=== PATIENT | female | born 1955 | race Caucasian/White ===

== ENCOUNTER 2022-09-12 13:24 | Outpatient (CLI) | payer MEDICARE, BC, SELFPAY ==
--- OUTSIDE RECORDS SUMMARY | 2022-09-12 09:07 | XMS_ITS | Encounter Summary ---
:1955 Author Organization [facility] Address [address] [place] [address] Care Team Providers Name Role Phone Unavailable Primary Care Provider Unavailable Reason for Visit Outpatient (Routine) - Closed Specialty Diagnoses / Procedures Referred By Contact Refer red To Contact Dermatology Diagnoses Rhytid Ryne Noguera M.D. [facility] Procedures XIAO Chemical peel Referral ID Status Reason Start Date Expiration Date Visits Requ ested Visits Authorized [id number] Closed 12/18/2020 12/18/2021 1 1 Encounter Details Date Type Department Care Team Description 01/07/2021 Office Visit Department of Dermatology Ryne Noguera M .D. [place] in [facility] Valerie Benitez, BibiNBeulah [address] [place] [address] Social History Tobacco Use Types Packs/Day Years Used Date Smoking Tobacco: Never Assessed Alcohol Habits Answer Date Recorded How often do you have a drink containing alcohol? 2-4 times a month 12/12/2020 How many drinks containing alcohol do you have on a 1 or 2 12/12/2020 typical day when you are drinking? How often do you have six or more drinks on one Never 12/12/2020 occasion? Social Isolation Answer Date Recorded In a typical week, how many times do you More than three gopal es a week 12/12/2020 talk on the phone with family, friends, or neighbors? How often do you get together with friends Never 12/12/2020 or relatives? How often do you attend roman catholic or Never 2020 congregation services? Do you belong to any clubs or Yes 12/12/2020 organizations such as roman catholic groups, unions, fraternal or athletic groups, or school groups? How often do you attend meetings of the More than 4 times pe r year 12/12/2020 clubs or organizations you belong to? Are you now , , , 12/12/2020 , never or living with a partner? Physical Activity Answer Date Recorded On average, how many days per week do you engage in moderate to 6 days 12/12/2020 strenuous exercise (like walking fast, running, jogging, dancing, swimming, biking, or other activities that cause a light or heavy sweat)? On average, how many minutes do you engage in exercise at th is 30 min 12/12/2020 level? Stress Answer Date Recorded Do you feel stress - tense, restless, nervous, or anxious, N ot at all 12/12/2020 or unable to sleep at night because your mind is troubled all the time - these days? Financial Resource Strain Answer Date Recorded How hard is it for you to pay for the very basics like Not h john paul at all 12/12/2020 food, housing, medical care, and heating? Food Insecurity Answer Date Recorded Within the past 12 months, you worried that your food would Never true 12/12/2020 run out before you got money to buy more. Within the past 12 months, the food you bought just didn't N ever true 12/12/2020 last and you didn't have money to get more. Transportation Needs Answer Date Recorded In the past 12 months, has lack of transportation kept you f rom No 12/12/2020 medical appointments or from getting medications? In the past 12 months, has lack of transportation kept you f rom No 12/12/2020 meetings, work, or getting things needed for daily living? Education Answer Date Recorded What is the highest level of school Master's degree (e.g., M A, MS, 12/12/2020 you have completed or the highest Rosalva, MEd, ENTERPRISE RESOURCE ANALYST, SRINI) degree you have received? Sex Assigned at Date Recorded Not on file documented as of this encounter Progress Notes Valerie Cai R.N. - 01/07/2021 9:40 AM CST PREOP INDICATION: TREATMENT Date of Procedure: 01/07/2021 Nurse: Valerie Cai R.N. Ordering Provider: Dr. Layton Noguera ([id number]) PostOp Diagnosis: rhytides Anatomic Location: Hands and fore Procedure: Glytone Glytone Hand peel INFORMED CONSENT Discussed the risks, benefits, alternatives, and the necessity of other members of the healthcare team participating in the procedure. All questions answered and consent given. Procedural pause conducted to verify: correct patient identity, procedure to be performed and as applicable, correct side and site, correct patient position, and availability of implants, special equipment or special requirements. Exclusion Criteria: Presence of herpes simplex lesions in the area to be treated: NO Recent (less than 6 months) facial surgery: NO Recent (less than 6 months) laser treatments, dermabrasion, or any other treatment that may alter orcompromise the cutaneous structure: NO Immunosuppressive diseases: NO Previous radiotherapy of the portion of skin to be treated:NO Personal or family history of developing keloids and/or hypertrophic scars: NO Personal or family history of inflammatory hyperpigmentation:NO or : NO Allergy to peel ingredient: NO Oral retinoids or Accutane in the last 6 months: NO Topical retinols or vitamin C in the past 7 days: NO Recent or planned excessive sun exposure: NO This is peel 2 of a planned 3 peel series. The skin was prepped in the usual fashion with a PS Wipe preoperatively. Soothing Lipid Recovery Cream was applied to the lips, eyes (inner and outer canthi),nasal creases, and any other area where the peel was not desired. A brush applicator was placed ontothe Glytone Hand peel vial top. A total of 3 layers in 6 minutes applied to treatment areas. When desired application time/endpoint reached, Glytone Hand peel Removal ROMULO Wipe used to remove/neutralizethe peel. Soothing Lipid Recovery Cream applied to treatment areas. Next Glytone peel in 20 days. Estimated blood loss: None. Complications: None. Wound care: Routine. Postoperative medications: Glytone lipid recovery cream Next peel will be scheduled in 02/05/2021 PATIENT EDUCATION Ready to learn, no apparent learning barriers were identified; learning preferences include listening. Explained post peel instructions; patient expressed understanding of the content. Patient paid for the procedure today. There should be no additional charges. SPORTATION ASSISTANT documented in this encounter Plan of Treatment Not on filedocumented as of this encounter Visit Diagnoses Diagnosis Rhytid documented in this encounter
--- OUTSIDE RECORDS SUMMARY | 2022-09-12 09:07 | XMS_ITS | Encounter Summary ---
:1955 Author Organization [facility] Address [address] [place] [address] Care Team Providers Name Role Phone Unavailable Primary Care Provider Unavailable Encounter Details Date Type Department Care Team Description 01/07/2021 Ancillary Procedure Department of Dermatology Social History Tobacco Use Types Packs/Day Years [...] or relatives? How often do you attend anabaptism or Never 2020 mandaeism services? Do you belong to any clubs or Yes 12/12/2020 organizations such as anabaptism groups, unions, fraternal or athletic groups, or [...] minutes do you engage in exercise at is 30 min 12/12/2020 level? Stress Answer [...] have completed or the highest Rosalva, MEd, ROUGE PRESSER, SRINI) degree you have received? Sex Assigned at Date Recorded Not on file documented as of this encounter Plan of Treatment Not on filedocumented as of this encounter Procedures Procedure Name Priority Date/Time Associated Comments Diagnosis DERMATOLOGY IMAGE Routine 01/07/2021 12:05 Result s for this EXAM AM REFERRAL COORDINATOR procedure are i n the results section. documented in this encounter Results Hands 524-Dermatology Image Exam (01/07/2021 12:05 AM REFERRAL COORDINATOR) Specimen (Source) Anatomical Location Collection Method / Collectio n Time Received Time / Laterality Volume Narrative IIMS - 01/07/2021 1:21 PM REFERRAL COORDINATOR This order has been created and auto-finalized to support the import of images acquired without order. The clini sharron documentation to support these images can be found on the encounter paul t produced images. Provider Not In System IMG NON RAD IMAGING PROCEDUR ES Performing Organization Address City/State/ZIP Code Phon e Number IIMI IIMI NA documented in this encounter Visit Diagnoses Not on filedocumented in this encounter
--- OUTSIDE RECORDS SUMMARY | 2022-09-12 09:07 | XMS_ITS | Encounter Summary ---
:1955 Author Organization [facility] Address [address] [place] [address] Care Team Providers Name Role Phone Unavailable Primary Care Provider Unavailable Encounter Details Date Type Department Care Team Description 12/18/2020 Ancillary Procedure Department of Dermatology Social History [...] or relatives? How often do you attend gnosticist or Never 2020 protestant services? Do you belong to any clubs or Yes 12/12/2020 organizations such as gnosticist groups, unions, fraternal or athletic groups, or [...] have completed or the highest Rosalva, MEd, POT ANNEALER, SRINI) degree you have received? Sex Assigned at Date Recorded Not on file documented as of this encounter Plan of Treatment Not on filedocumented as of this encounter Procedures Procedure Name Priority Date/Time Associated Comments Diagnosis DERMATOLOGY IMAGE Routine 12/18/2020 12:00 Result s for this EXAM AM DIRECTOR OF MANUFACTURING OPERATIONS procedure are i n the results section. documented in this encounter Results Hands 524-Dermatology Image Exam (12/18/2020 12:00 AM DIRECTOR OF MANUFACTURING OPERATIONS) Specimen (Source) Anatomical Location Collection Method / Collectio n Time Received Time / Laterality Volume Narrative IIMS - 12/18/2020 3:18 PM DIRECTOR OF MANUFACTURING OPERATIONS This order has been created and auto-finalized to support the import of images acquired without order. The clini sharron documentation to support these images can be found on the encounter paul t produced images. Provider Not In System IMG NON RAD IMAGING PROCEDUR ES Performing Organization Address City/State/ZIP Code Phon e Number [id number] NA documented in this encounter Visit Diagnoses Not on filedocumented in this encounter
--- OUTSIDE RECORDS SUMMARY | 2022-09-12 09:07 | XMS_ITS | Encounter Summary ---
:1955 Author Organization [facility] Address [address] [place] [address] Care Team Providers Name Role Phone Unavailable Primary Care Provider Unavailable Encounter Details Date Type Department Care Team Description 12/18/2020 Clinical Communication Department of Roberto, Dermatology in Sapna Guadarrama R.N. [place], [place] [phone] [address] [facility] (Work) [place] [address] Social History Tobacco Use Types Packs/Day Years [...] or relatives? How often do you attend bahai or Never 2020 alevism services? Do you belong to any clubs or Yes 12/12/2020 organizations such as bahai groups, unions, fraternal or athletic groups, or [...] have completed or the highest Rosalva, MEd, VP CARDIOVASCULAR SERVICE LINE, SRINI) degree you have received? Sex Assigned at Date Recorded Not on file documented as of this encounter Miscellaneous Notes Telephone Encounter - Sapna Mejia, RBeulahN. - 12/18/2020 10:16 AM COMPUTER EQUIPMENT REPAIRER S-Aruna Velazquez would like a new cosmetic consult appointment with Dr. Morton since it has been so long. She would like to discuss/review the options again with Dr. Morton and then plan for the recommended procedure(s). Baljeet-Aruna saw Dr. Morton for a cosmetic consult 07/17/[address] Morton recommended and ordered a CO2 laser procedure. Patient was never able to get it scheduled due to calendar difficulty and then COVID. She states she has undergone multiple laser treatments in the past, the last of which was approximately 7 years ago. She has also received ???dry ice types of therapy and has used a Retin-A product inthe past. She has never undergone a chemical peel. She is currently using SkinCeutical products including a moisturizer and sunscreen. Aruna did receive her first chemical peel, the glytone hand peel, on 12/18/20. A-Aruna mentioned that she would like a new consult rather than going forward with the CO2 procedure just yet. I agreed that was a good idea and placed the order for a new cosmetic consult so scheduling can work on getting her an appointment. R-Aruna needs cosmetic consult scheduled. Order placed. UTER EQUIPMENT REPAIRER documented in this encounter Plan of Treatment Not on filedocumented as of this encounter Visit Diagnoses Not on filedocumented in this encounter
--- OUTSIDE RECORDS SUMMARY | 2022-09-12 09:07 | XMS_ITS | Encounter Summary ---
:1955 Author Organization [facility] Address [address] [place] [address] Care Team Providers Name Role Phone Unavailable Primary Care Provider Unavailable Reason for Referral Outpatient (Routine) - Closed Specialty Diagnoses / Procedures Referred By Contact Refer red To Contact Dermatology Diagnoses Rhytid Ryne Noguera M.D. [facility] Procedures XIAO Chemical peel Referral ID Status Reason Start Date Expiration Date Visits Requ ested Visits Authorized [id number] Closed 12/18/2020 12/18/2021 1 1 ER VAULT Reason for Visit Outpatient (Routine) - Closed Specialty Diagnoses / Procedures Referred By Contact Refer red To Contact Dermatology Diagnoses [place] Laury Huitron M.D. [facility] Procedures XIAO Chemical peel [address] [place], [place] [address] Referral ID Status Reason Start Date Expiration Date Visits Requ ested Visits Authorized [id number] Closed 12/16/2020 12/16/2021 1 1 Encounter Details Date Type Department Care Team Description 12/18/2020 Office Visit Department of Mesha Huitron M.D. [address] [place] [phone] Rhytid (Primary Dx); Dermatology in Sapna Mejia R.N. [place], [place] [address] [place] [phone] Social History Tobacco Use Types Packs/Day Years [...] or relatives? How often do you attend latter-day or Never 2020 hinduism services? Do you belong to any clubs or Yes 12/12/2020 organizations such as latter-day groups, unions, fraternal or athletic groups, or [...] have completed or the highest Rosalva, MEd, CARE TRAINER, SRINI) degree you have received? Sex Assigned at Date Recorded Not on file documented as of this encounter Progress Notes Sapna Mejia R.N. - 12/18/2020 9:40 AM CST PREOP INDICATION: TREATMENT Date of Procedure: 12/18/2020 Nurse: Sapna Mejia R.N. Ordering Provider: Dr. Layton Noguera ([id number]) PostOp Diagnosis: rhytides Anatomic Location: hands/forearms Procedure: Glytone Glytone Hand peel INFORMED CONSENT [...] excessive sun exposure: NO This is peel 1 of a planned 3 peel series. The [...] application time/endpoint reached, Glytone Hand peel Removal Wipe/ROMULO Wipe used to remove/neutralize the peel. Soothing Lipid Recovery Cream applied to treatment areas. Next Glytone peel in 20 days. Estimated blood loss: None. Complications: None. Wound care: Routine. Postoperative medications: Glytone lipid recovery cream Next peel will be scheduled in January 07 PATIENT EDUCATION Ready to learn, no apparent learning barriers were identified; learning preferences include listening. Explained post peel instructions; patient expressed understanding of the content. Patient paid for the procedure today. There should be no additional charges. ER VAULT documented in this encounter Plan of Treatment Scheduled Orders Name Type Priority Associated Diagnoses Order S chedule XIAO Chemical peel Dermatology Routine Rhytid Expected: 12/18/2020 (Approximate), Expires: 12/18/2023 documented as of this encounter Visit Diagnoses Diagnosis Rhytid - Primary Lentigo documented in this encounter
--- OUTSIDE RECORDS SUMMARY | 2022-09-12 09:07 | XMS_ITS | Clinical Summary ---
:1955 Author Organization [facility] Address [address] [place] [address] Care Team Providers Name Role Phone Unavailable Primary Care Provider Unavailable Source Comments Patient records contain information from all sites at [facility]. For routine questions regarding patient records, call [phone] during business hours, M-F 8:00 AM - 5:00 PM Central Time. Record requests for emergency care only can be directed to [phone] at any time.[facility] Medications Medication Sig Dispensed Refills Start Date End Date Status fluorouraciL (EFUDEX) Apply 1 application 40 g 0 12/16/19 21 Active 5 % cream topically 2 (two) times a day. Social History Tobacco Use Types Packs/Day Years [...] or relatives? How often do you attend jainism or Never 2020 gnosticist services? Do you belong to any clubs or Yes 12/12/2020 organizations such as jainism groups, unions, fraternal or athletic groups, or [...] have completed or the highest Rosalva, MEd, INCIDENT RESPONSE ANALYST, SRINI) degree you have received? Sex Assigned at Date Recorded Not on file Plan of Treatment Health Maintenance Due Date Last Done Comments Bone Density Scan (Osteoporosis 1955 Screen) CT Colonography 1955 Cologuard 1955 Colonoscopy 1955 Colorectal Cancer Screening 1955 FIT 1955 Fasting Glucose for Diabetes 1955 Screening Hepatitis C Screening 1955 Mammogram 1955 Depression Screening (Annual 11/06/2021 PHQ-2) Fall Risk Screen (Annual) 11/06/2021 COVID-19 Vaccine (5 - Booster for 05/23/2022 03/28/2022, , Moderna series) 01/19/2021, Additional history exists Influenza Vaccine (#1) 2022 08/03/2021, 08/17/2020, 09/02/2019, Additional history exists DTaP,Tdap,and Td Vaccines (3 - Td 09/21/2027 09/21/2017, or Tdap) Pneumococcal vaccine (65+ years) Completed 10/17/2019, Zoster Vaccines Completed 08/17/2022, 04/12/2022, 06/27/2013 Insurance Payer Benefit Plan Subscriber ID Effective Phone Address Typ e / Group Dates MEDICARE MEDICARE A [id number] 2018-Pres [address] [place] [address] BLUE CROSS BCBS [place] [id number] 2018-Pres [phone] PO [address]EDRO PABLO X Cost Share BLUE SHIELD BLUE COST ent [phone] [place] [address]
--- OUTSIDE RECORDS SUMMARY | 2022-09-12 09:07 | XMS_ITS | Encounter Summary ---
:1955 Author Organization [facility] Address [address] [place] [address] Care Team Providers Name Role Phone Unavailable [...] or relatives? How often do you attend cheondoism or Never 2020 roman catholic services? Do you belong to any clubs or Yes 12/12/2020 organizations such as cheondoism groups, unions, fraternal or athletic groups, or [...] have completed or the highest Rosalva, MEd, EMERGING TECHNOLOGIES DIRECTOR, SRINI) degree you have received? Sex Assigned at Date Recorded Not on file documented as of this encounter Plan of Treatment Not on filedocumented as of this encounter Procedures Procedure Name Priority Date/Time Associated Comments Diagnosis DERMATOLOGY IMAGE Routine 01/07/2021 12:00 Result s for this EXAM AM METAL MILLING MACHINE OPERATOR procedure are i n the results section. documented in this encounter Results Arms-Dermatology Image Exam (01/07/2021 12:00 AM METAL MILLING MACHINE OPERATOR) Specimen (Source) Anatomical Location Collection Method / Collectio n Time Received Time / Laterality Volume Narrative IIMS - 01/07/2021 1:21 PM METAL MILLING MACHINE OPERATOR This order has been created and auto-finalized to support the import of images acquired without order. The clini sharron documentation to support these images can be found on the encounter paul t produced images. Provider Not In System IMG NON RAD IMAGING PROCEDUR ES Performing Organization Address City/State/ZIP Code Phon e Number IIMS IIMS NA documented in this encounter Visit Diagnoses Not on filedocumented in this encounter
--- OUTSIDE RECORDS SUMMARY | 2022-09-12 09:07 | XMS_ITS | Clinical Summary ---
:1955 Author Organization [facility] [place] [address] Care Team Providers Name Role Phone Hilda Carbajal Primary Care Provider Allergies Active Allergy Reactions Severity Noted Date Comments Sulfa (Sulfonamide Antibiotics) Hives 2 Reaction in 1997 Medications No known medications Active Problems Problem Noted Date Routine general medical examination at [facility] 06/23/2011 Overview: Colonoscopy 06/2013 normal repeat in 10 y ears Immunizations Name Administration Dates Next Due HepA-HepB (Twinrix) 12/26/2006, 07/13/2006, 06/06/2006 Tdap 06/06/2006 Zoster (Zostavax-ZVL, live) 06/27/2013 Family History Medical History Relation Name Comments Cancer Father multiple myeloma Heart Disease Mother MVP Cancer-breast Paternal Grandmother Diagnosed i n her 70's Other Sister MVP?? Relation Name Status Comments Father (Age 59) melanoma Mother (Age 84) MVP, CHF Paternal Grandmother Sister Social History Tobacco Use Types Packs/Day Years Used Date Never Smoker Smokeless Tobacco: Never Used Tobacco Cessation: Counseling Given: Yes Alcohol Use Standard Drinks/Week Comments Yes 0 (1 standard drink = 0.6 oz pure alcoho l) 1x/month Alcohol Habits Answer Date Recorded How often do you have a drink containing alcohol? Not asked How many drinks containing alcohol do you have on a typical Not asked day when you are drinking? How often do you have six or more drinks on one occasion? No t asked Comment: 1x/month 05/07/2008 Sex Assigned at Date Recorded Not on file Obstetrics History Last Filed Vital Signs Vital Sign Reading Time Taken Comments Blood Pressure 113/75 09/17/2014 9:32 AM ACID SPLICER Pulse 56 09/17/2014 9:32 AM ACID SPLICER Temperature 36.4 ??C (97.6 ??F) 06/27/2013 11:51 AM CDT Respiratory Rate - - Oxygen Saturation 100% 06/25/2013 2:25 PM CDT Inhaled Oxygen Concentration - - Weight 70.8 kg (156 lb) 09/17/2014 9:32 AM ACID SPLICER Height 164 cm (5' 4.57) 09/17/2014 9:32 AM ACID SPLICER Body Mass Index 26.31 09/17/2014 9:32 AM ACID SPLICER Plan of Treatment Health Maintenance Due Date Last Done Comments COVID-19 vaccine series (#1) 1955 Depression screening for age 12+ 1965 BMI (ht and wt on same day) for 1971 age 18+ Hepatitis C screening for age 0605/04/1971 18-79 Zoster (shingles) series for age 1008/22/2013 06/27/2013 50+ (2 of 3) Tetanus booster 06/06/2016 06/06/2006 Mammogram for age 45-75 09/23/2016 09/23/2015, 09/17/2014, 06/27/2013, Additional history exists DEXA/DXA scan for age 65+ 2018 Pneumococcal series for age 65+ (1 2018 - PCV) Lipids for age 45-75 06/27/2018 06/27/2013, 06/26/2012, 05/12/2009 Influenza for age 65+ 07/07/2022 Colonoscopy through age 75 06/25/2023 06/25/2013, 3, 06/23/2011 (Completed outside of [facility]), Additional history exists Tdap Completed 06/06/2006 Results Not on filefrom Last 3 Months Insurance Payer Benefit Plan / Subscriber ID Effective Dates Phone Addre ss Type Group [employer] [id number] 2014-Present [address] [place] [address] Care Teams Bag Maker Relationship Specialty Start Date End Date iHlda Carbajal PA PCP - General Family Practice 12/12/11 [address] [place] [address]
--- OUTSIDE RECORDS SUMMARY | 2022-09-12 09:08 | XMS_ITS | Encounter Summary ---
:1955 Author Organization [facility] Address [address] [place] [address] Care Team Providers Name Role Phone Unavailable Primary Care Provider Unavailable Reason for Visit Reason Comments COVID Inquiry Encounter Details Date Type Department Care Team Description 11/10/2020 Clinical Communication Department of Ryne Noguera COV ID Inquiry Dermatology in .. [place], [place] [address] [place] [address] Social History Tobacco Use Types Packs/Day Years [...] or relatives? How often do you attend pentecostalism or Never 2020 scientologist services? Do you belong to any clubs or Yes 12/12/2020 organizations such as pentecostalism groups, unions, fraternal or athletic groups, or [...] or getting things needed for daily living? Sex Assigned at Date Recorded Not on file documented as of this encounter Miscellaneous Notes Telephone Encounter - Pam Negro - 11/10/2020 11:44 AM CST What is the purpose of the call?: Standard Appointment Process Standard Appointment Process Have you tested positive for COVID-19 in the last 20 days OR do you have a pending COVID-19 test because you had symptoms?: No, neither apply What region is the appointment being requested?: More than 20 days [facility], [facility] or [facility] In the past 14 days have you had close contact* with a person who has a LABORATORY CONFIRMED case ofCOVID-19?: No exposure noted. Follow local process (End Screening) Testing Recommendation Endpoint Is testing recommended? : Not recommended to test Plan: Endpoint recommendation: Followed regional OTG *Reminder if sending patient for testing in [facility] or [facility], route encounter to the correct testing pool. TH INFORMATICS ADVISOR documented in this encounter Plan of Treatment Not on filedocumented as of this encounter Visit Diagnoses Not on filedocumented in this encounter
--- OUTSIDE RECORDS SUMMARY | 2022-09-12 09:08 | XMS_ITS | Encounter Summary ---
:1955 Author Organization [facility] Address [address] [place] [address] Care Team Providers Name Role Phone Unavailable Primary Care Provider Unavailable Reason for Referral Medication Prior Authorization (Routine) - Pending Review Specialty Diagnoses / Procedures Referred By Contact Refer louis To Contact Sebastian Gonzalez M.D., M.B.A. [address] [place] [address] Referral ID Status Reason Start Date Expiration Date Visits V isits Requested Authorized [id number] Pending Review Reason for Visit Outpatient (Routine) - Closed Specialty Diagnoses / Procedures Referred By Contact Byron myers To Contact Dermatology Diagnoses [place] Rose Marie Morton M.D. [address] [address] Referral ID Status Reason Start Date Expiration Date Visits Requ ested Visits Authorized [id number] Closed 06/15/2018 06/15/2019 1 1 Encounter Details Date Type Department Care Team Description 07/17/2018 Comprehensive Visit Department of Rose Marie Morton (Primary Dx); Dermatology reyna Maria M.D. [place], [place] [address] [place] [phone] Social History Tobacco Use Types Packs/Day Years [...] or relatives? How often do you attend sikh or Never 2020 quaker services? Do you belong to any clubs or Yes 12/12/2020 organizations such as sikh groups, unions, fraternal or athletic groups, or [...] documented as of this encounter Progress Notes Sebastian Gonzalez M.D., M.B.A. - 07/17/2018 2:40 PM CDT Correspondence To: Rose Marie Morton M.D. Supervised by: Rose Marie Tran M.D. Patient seen and discussed with supervising risk consultant, who evaluated the patient and concurs with the assessment and plan. REFERRED BY: Rose Marie Morton M.D. [address] [place] [phone] Chief Complaint Facial rejuvenation discussion History of Present Illness Ms. Velazquez is a 63 y.o. 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 Patient was last seen by [facility] on June 15, 2018 for a full skin exam. At that time, lesions of the left upper back and right posterior forearm were biopsied and returned as nevus with moderate atypia and lichenoid keratosis respectively. Additionally, 3 actinic keratoses were identified on exam and treatment was deferred given the patient will be following up for discussion of laser treatments. Today, patient reports that she is interested in pursuing rejuvenation therapies for the face and possibly the hands. She states she has undergone multiple laser treatments in the past, the last of which was approximately 7 years ago. She has also received ???dry ice types of therapy and has used a Retin-A product in the past. She has never undergone a chemical peel. She is currently using SkinCeutic al products including a moisturizer and sunscreen. Review of Systems Denies fevers, chills, unintentional weight loss, lymphadenopathy. 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 Allergies Allergies not on file Physical Exam General: Well appearing female in no acute distress. Alert and Oriented. Eyes: No eyelid abnormalities. No scleral injection. Skin: Limited skin examination of the face, scalp, hair, and bilateral hands/forearms performed per patient request ?? Static and dynamic rhytides ?? Acne scarring concentrated on the cheeks ?? Lentigines involving the bilateral dorsal hands and forearms ?? One small area of grittiness noted on the nose though appearance is obscured by makeup Assessment and Plan #1, 2, 3. Static and dynamic rhytides / Dermatoheliosis / Acne scarring of cheeks Patient is a 63-year-old female with a history of multiple nonmelanoma skin cancers who presents today to discuss possible rejuvenation treatments of the face and hands. Exam reveals static and dynamicrhytides, solar lentigines, and acne scarring concentrated on the bilateral cheeks. ?? We discussed resurfacing treatment with CO2 fractionated laser ?? Patient counseled on the risks and benefits of treatment and given expectations for the days and weeks following treatment. ?? Discussed possible use of topical steroids, antiviral medication, antibacterial medication, numbing agents, and antihistamines ?? Patient would like to proceed with therapy ?? Prescription for tretinoin 0.05% cream provided. Patient instructed to begin using this medication every other night and increase to every night as tolerated. ?? Over the counter SkinCeutical products recommended #4. Solar lentigines Exam reveals several lentigines involving the bilateral dorsal hands and forearms. ?? Discussed treatment options for solar lentigines on bilateral dorsal hands including laser therapy, chemical peels, and tretinoin cream. ?? Patient will proceed with tretinoin therapy as described above. ?? Patient is interested in chemical peel of the bilateral dorsal hands. #5. Actinic keratoses Patient was seen by [facility] in June 2018, at which time 3 actinic keratoses were identified on exam. ?? Lesions will be treated when patient follows up for CO2 fractionated laser PATIENT EDUCATION Ready to learn. No apparent learning barriers were identified. Learning preferences include listening. Explained diagnosis and treatment plan; patient/guardian of patient expressed understanding of thecontent. Associated attestation - Rose Marie Morton M.D. - 07/18/2018 9:47 AM CDT I saw and evaluated the patient, participating in the pinedo portions of the service. I reviewed the resident???s note. I agree with the resident???s findings and plan. documented in this encounter Plan of Treatment Not on filedocumented as of this encounter Visit Diagnoses Diagnosis Rhytid - Primary Lentigo documented in this encounter
--- OUTSIDE RECORDS SUMMARY | 2022-09-12 09:08 | XMS_ITS | Encounter Summary ---
:1955 Author Organization [facility] Address [address] [place] [address] Care Team Providers Name Role Phone Unavailable Primary Care Provider Unavailable Encounter Details Date Type Department Care Team Description 10/21/2019 Ancillary Procedure Department of Dermatology Social History [...] or relatives? How often do you attend hinduism or Never 2020 amish services? Do you belong to any clubs or Yes 12/12/2020 organizations such as hinduism groups, unions, fraternal or athletic groups, or [...] Date/Time Associated Comments Diagnosis DERMATOLOGY IMAGE Routine 10/21/2019 11:20 Result s for this EXAM AM INSTRUMENT CHECKER procedure are i n the results section. documented in this encounter Results Back, left 49 225 227 229-Dermatology Image Exam (10/21/2019 11:20 AM INSTRUMENT CHECKER) Specimen (Source) Anatomical Collection Method Collection Time Re ceived Time Location / / Volume Laterality 10/21/2019 11:20 AM INSTRUMENT CHECKER Narrative [facility] - 10/21/2019 11:22 AM INSTRUMENT CHECKER This order has been created and auto-finalized to support the import of images acquired without order. The clini sharron documentation to support these images can be found on the encounter paul t produced images. Provider Not In System IMG NON RAD IMAGING PROCEDUR ES Performing Organization Address City/State/ZIP Code Phon e Number IITX [facility] NA documented in this encounter Visit Diagnoses Not on filedocumented in this encounter
--- OUTSIDE RECORDS SUMMARY | 2022-09-12 09:08 | XMS_ITS | Encounter Summary ---
:1955 Author Organization [facility] Address [address] [place] [address] Care Team Providers Name Role Phone Unavailable Primary Care Provider Unavailable Encounter Details Date Type Department Care Team Description 05/28/2018 Abstract DATA ABSTRACTION Provider, Historical Social History Tobacco Use Types Packs/Day Years [...] or relatives? How often do you attend confucianism or Never 2020 taoism services? Do you belong to any clubs or Yes 12/12/2020 organizations such as confucianism groups, unions, fraternal or athletic groups, or [...]
--- OUTSIDE RECORDS SUMMARY | 2022-09-12 09:08 | XMS_ITS | Encounter Summary ---
:1955 Author Organization [facility] Address [address] [place] [address] Care Team Providers Name Role Phone Unavailable Primary Care Provider Unavailable Reason for Referral Outpatient (Routine) - Closed Specialty Diagnoses / Procedures Referred By Contact Refer red To Contact Dermatology Diagnoses [place] Laury Huitron M.D. [facility] Procedures XIAO Chemical peel [address] [place], [place] [address] Referral ID Status Reason Start Date Expiration Date Visits Requ ested Visits Authorized [id number] Closed 12/16/2020 12/16/2021 1 1 UCE SPECIALIST Reason for Visit Appointment Request (Routine) - Closed Specialty Diagnoses / Procedures Referred By Contact Refer red To Contact Dermatology Diagnoses Screening Examination Skin Cancer Referral ID Status Reason Start Date Expiration Date Visits Requ ested Visits Authorized [id number] Closed 11/10/2020 11/10/2021 1 1 Encounter Details Date Type Department Care Team Description 12/16/2020 Office Visit Department of Ryne Noguera [place]entigo (Prim palomo Dx); Dermatology in [place] Keratosis Act inic; [place], [place] Photodamage; [address] [facility] [place] [phone] Social History Tobacco Use Types Packs/Day Years [...] or relatives? How often do you attend gnosticism or Never 2020 latter day services? Do you belong to any clubs or Yes 12/12/2020 organizations such as gnosticism groups, unions, fraternal or athletic groups, or [...] highest level of school Master's degree (e.g., Mirza Holman MS, 12/12/2020 you have completed or the highest Rosalva, MEd, TACTICAL [employer]OL [employer]Y MANAGER, [employer]) degree you have received? Sex Assigned at Date Recorded Not on file documented as of this encounter Consult Notes Ryne Noguera M.D. - 12/16/2020 1:20 PM CST DERMATOLOGY CLINIC REFERRED BY No referring provider defined for this encounter. Correspondence to Dr. Noguera Supervised by: Dr. Huitron CHIEF COMPLAINT / REASON FOR VISIT Skin lesion HISTORY OF PRESENT ILLNESS Ms. Aruna Velazquez is a 65 y.o. female who has a history of nonmelanoma skin cancer. The patient was last seen in Dermatology October 2019 and had a basal cell carcinoma of the left upper back treated Today Ms. Velazquez notes that she saw Dr. Morton and Carlos in 2018 for discussion of CO2 fractional lasertreatment of rhytides, lentigines, and acne of the cheeks. Unfortunately due to rescheduling and thewait list, she has not been able to have the procedure completed. She wishes to see if there are anyother treatment options available. Additionally the patient has had peeling on her lower lips. This has been treated with cryotherapy in the past and left a whitish scar. The area has been asymptomaticand has not been biopsied or treated before in the past Otherwise the patient denies other new, changing, painful, or itching skin lesions. Ms. Velazquez reports a history of sun exposure and does not report any systemic symptoms and has no other questions or concerns. PAST MEDICAL HISTORY reviewed FAMILY HISTORY reviewed Not on File PHYSICAL EXAM General: Well appearing and in no acute distress. Psych: Pleasant. Appropriate mood and affect Neuro: Awake and alert. Moves all four extremities. Eyes: No scleral injection or icterus. No eyelid abnormalities. Respiratory: Breathing easily on room air. Cardio: Appears well perfused. No lower extremity edema. Skin: I have examined the scalp, face, neck, chest, abdomen, back, bilateral upper extremities, bilateral lower extremities, and buttocks. Exam is notable for the following: Mccallum type II skin. Ice-pick scars on the cheeks with diffuse erythema. Lentigines scattered on the dorsal hands and forearms. On the lower vermilion border, diffuse scaling worsen the left portion. Scattered on the trunk and extremities are several brown to dark brown pigmented macules of varying size, uniform color and pigmentation. Several of these were examined under dermoscopy revealing benign pigment morphology. ASSESSMENT / PLAN #1 Actinic cheilitis, lower lip After discussion of available treatment options risks and benefits, the patient wished to proceed with Efudex twice daily for 3 weeks. Proper application methods in a educational brochure were provided. The prescription was sent to her local pharmacy. #2 rhytides, dermatoheliosis, acne scars, and lentigines I discuss that fractionated laser in combination with PDL and possibly TCA cross would be most optimal for facial rejuvenation. I recommend that she see Dr. Morton discuss if this could be planned in the near future. In regards to lentigines on the dorsal hands, I recommended treatment with our hand chemical peel. An order was placed. We additionally discussed that if she does not have response, spot treatment with TCA may be considered in the future. #3 Dermatoheliosis No worrisome findings for skin cancer today. Recommend sun protection, sun avoidance, and monthly skin self-examination. The warning signs and symptoms of skin cancer and proper use of sunscreens discussed. Recommend a full skin cancer screening examination with an appropriately trained clinician every year. #4 Multiple benign appearing nevi None of the patient's nevi reach the clinical threshold for biopsy. Recommend continued sun protection, self-skin examinations, and observation. Should any of the patient's nevi change in size, color, texture, or shape or develop symptoms such as itching or bleeding, recommend an immediate return visit for reassessment. The patient expresses understanding and is in agreement with the plan. All questions were answered to the best of my ability. It was a pleasure seeing Ms. Aruna Velazquez today. Ryne Noguera M.D. [facility] SPECIALIST Associated attestation - Laury Huitron M.D. - 12/17/2020 1:32 PM PRODUCE SPECIALIST I saw and evaluated the patient, participating in the pinedo elements of the service. I discussed the findings, assessment and plan with the resident/fellow and agree with resident/fellow???s findings andplan as documented in the resident/fellow's note. I was immediately available for the entirety of the procedure(s) and present for the pinedo and critical portions. documented in this encounter Plan of Treatment Scheduled Orders Name Type Priority Associated Diagnoses Order S chedubebe XIAO Chemical peel Dermatology Routine [place]igo Expected: 12/16/2020 (Approximate), Expires: 12/16/2023 documented as of this encounter Visit Diagnoses Diagnosis Lentigo - Primary Keratosis Actinic Photodamage Keratosis Seborrheic documented in this encounter
--- OUTSIDE RECORDS SUMMARY | 2022-09-12 09:08 | XMS_ITS | Encounter Summary ---
:1955 Author Organization [facility] Address [address] [place] [address] Care Team Providers Name Role Phone Unavailable Primary Care Provider Unavailable Reason for Visit Appointment Request (Routine) - Closed Specialty Diagnoses / Procedures Referred By Contact Refer red To Contact Dermatology Referral ID Status Reason Start Date Expiration Date Visits Requ ested Visits Authorized [id number] Closed 08/15/2019 08/14/2020 1 Encounter Details Date Type Department Care Team Description 10/21/2019 Office Visit Department of Petey Saravia Keratosis Actinic (Primary Dx); Dermatology in [place] Multiple ; [place], [place] Personal History Of Other Ma lignant Neoplasm Of Skin; [address] Tumor Skin Uncertain Behavio r; [place], [place] Lesion Skin [place]; [address] Keratosis Seborrheic; [phone] Lentigo; Dermatoheliosis ; Keratosis Liche noid Social History Tobacco Use Types Packs/Day Years [...] or relatives? How often do you attend mosque or Never 2020 yarsani services? Do you belong to any clubs or Yes 12/12/2020 organizations such as mosque groups, unions, fraternal or athletic groups, or [...] documented as of this encounter Consult Notes Petey Saravia M.D. - 10/21/2019 11:00 AM CST CHIEF COMPLAINT / REASON FOR VISIT History of nonmelanoma skin cancer, skin cancer screening examination Correspondence to Dr. Saravia Supervised by Dr. Huitron HISTORY OF PRESENT ILLNESS Ms. Aruna Velazquez is a 64 y.o. female who presents today for a skin cancer screening examination. Ms. Aruna Velazquez has a history of nonmelanoma skin cancers and was last seen 1 year ago. She was seen for cosmetic consultation by Dr. Morton and there was a plan for CO2 laser to the hands and face for actinic damage and this pigmentation as well as actinic keratoses. Unfortunately she was not able to get an appointment despite multiple attempts. She would like to have this treatment if possible. The patient notes some rough areas still on her nose and 1 spot on her upper arm on the right, but otherwise denies any painful, itching, changing or bleeding lesions. During the exam I noted some pink areas on her chest. She states these appear when she was more sweaty under her sports bra. It does not bother her. REVIEW OF SYSTEMS No other cutaneous complaints. PAST MEDICAL HISTORY As above PHYSICAL EXAM General: Awake, alert, in no acute distress, and with appropriate affect. Skin: I have examined the scalp, face, neck, chest, abdomen, back, bilateral upper extremities, and bilateral lower extremities, buttocks excluding the genitalia per patient request. There is dyspigmentation a moderate dermatoheliosis in sun-exposed areas. Multiple stuck on waxy papules and plaques. On the left mid paraspinal back there's a pink scaly thin papule with arborizing telangiectasias. Involving the left hip there's a light brown irregularly shaped macule with eccentric dots of pigment on dermoscopy. She has multiple pigmented and pink gritty macules over the hands and forearms, as well as several on the nose and left upper cutaneous lip. Multiple evenly pigmented brown macules. On the right upper arm in the area of concern there is a pink scaly papule with features of seborrheic keratosis on dermoscopy. Over the sternum and inframammary areas there are nonspecific pink papules, some of which are slightly scaly. ASSESSMENT / PLAN #1 Skin cancer screening examination #2 Rule out superficial BCC, left upper paraspinal back CONSENT Discussed the risks, benefits, alternatives, and the necessity of other members of the healthcare team participating in the procedure. All questions answered and consent given. UNIVERSAL PROTOCOL Procedural pause conducted to verify: correct patient identity, procedure to be performed, and as applicable, correct side and site, correct patient position, and availability of implants, special equipment, or special requirements. PROCEDURE INFORMATION Shave biopsy. We explained the potential diagnosis and recommended that we obtain a biopsy. The risks and benefitsof the procedure were discussed, and the patient consented to these procedures. Using 1% lidocaine with epinephrine for local anesthesia, a shave biopsy was obtained from the left upper paraspinal back. Biopsy submitted to Dermatopathology for H&E. Special stains will be performed as indicated. The bleeding was well controlled with application of aluminum chloride. Dressing was applied, and woundcare instructions were explained. Biopsy results and any further recommendations will be communicated to the patient by letter. Patient given pamphlet [id number]. ED&C Electrodessication & curettage The anesthesia used was 1% lidocaine with epinephrine 1:200,000. The skin was prepped in a sterile fashion with alcohol. The lesion was curetted with a 3-mm curette in three different directions and electrodesiccation of the base until clinically tumor-free margins were obtained. Postoperative size: 0.9 cm. Estimated blood loss: Minimal. Complications: None. Wound care: Routine. Specimen sent to Dermatopathology. Biopsy report is pending. #3 Atypical nevus versus melanoma, left hip CONSENT Discussed the risks, benefits, alternatives, and the necessity of other members of the healthcare team participating in the procedure. All questions answered and consent given. UNIVERSAL PROTOCOL Procedural pause conducted to verify: correct patient identity, procedure to be performed, and as applicable, correct side and site, correct patient position, and availability of implants, special equipment, or special requirements. PROCEDURE INFORMATION Shave biopsy. We explained the potential diagnosis and recommended that we obtain a biopsy. The risks and benefitsof the procedure were discussed, and the patient consented to these procedures. Using 1% lidocaine with epinephrine for local anesthesia, a shave biopsy was obtained from the left hip. Biopsy submittedto Dermatopathology for H&E. Special stains will be performed as indicated. The bleeding was well controlled with application of aluminum chloride. Dressing was applied, and wound care instructionswere explained. Biopsy results and any further recommendations will be communicated to the patient by letter. Patient given pamphlet [id number]. #4 Dermatoheliosis Sun protection and sun avoidance were reviewed with the patient. Educational materials were providedregarding skin self-examination, the warning signs and symptoms of skin cancer, and the proper use of sunscreens. I would recommend a full skin cancer screening examination with an appropriately trained clinician every year. #5 Banal-appearing nevi The ABCDE criteria for melanoma was reviewed with the patient. None of the patient's nevi reach the clinical threshold for biopsy. I recommend continued sun protection, self-skin examinations, and observation. Should any of the patient's nevi change in size, color, texture, or shape or develop symptoms such as itching or bleeding, I recommend an immediate return visit for reassessment. #6 Seborrheic keratoses The benign nature of the skin lesion(s) was discussed with the patient. No treatment is required. I recommend continued observation. Should symptoms or changes develop related to this condition, I would recommend a return visit for reassessment. #7 Lichenoid keratosis, right upper arm After explaining the procedure, discussing the associated risks, benefits, and alternatives, and obtaining verbal informed consent, the lesion(s) underwent treatment with liquid nitrogen cryotherapy inthe standard fashion. Wound care was discussed. Patient offered educational materials. #8 Actinic keratoses, dyspigmentation She is still interested in pursuing CO2 laser treatment and I will send a message to Dr. Morton to see if we can help get her in for this treatment. She declined treatment of actinic keratoses with the plan to treat these with the CO2 laser. #9 Likely [place]'s disease, central chest I offered treatment with topical steroid but she declined. She can pursue this if it becomes more bothersome to her in the future. All questions answered. INFORMED CONSENT Discussed the risks, benefits, alternatives, and the necessity of other members of the healthcare team participating in the procedure. All questions answered and consent given. PATIENT EDUCATION Ready to learn. No apparent learning barriers were identified. Learning preferences include listening. Explained diagnosis and treatment plan; patient/guardian of patient expressed understanding of thecontent. CATION TECH documented in this encounter Plan of Treatment Not on filedocumented as of this encounter Procedures Procedure Name Priority Date/Time Associated Diagnosis Comme nts DERMATOPATHOLOGY Routine 10/21/2019 11:20 AM Resu lts for this MEDICATION TECH procedure are i n the results section. documented in this encounter Results Dermatopathology (10/21/2019 11:20 AM MEDICATION TECH) Component Value Ref Test Analysis Performed Pathologis t Range Method Time At Signature 10/25/2019 PDRM 3:27 PM MEDICATION TECH Participated in Sherry 10/25/2019 [facility] the Christ, 3:27 PM MEDICATION TECH Interpretation Josse-Pathology Fellow Report Lilli Barraza 10/25/2019 [facility] electronically Michelle Ovalles 3:27 PM MEDICATION TECH signed by Gross Description A: ?? Received in formalin labeled with the patie nt's name, 10/25/2019 [facility] medical record number, and left upper paraspinal back is 3:27 PM MEDICATION TECH a 0.9 x 0.6 x 0.1 cm pale rivera skin shave biopsy. No discrete lesion is grossly identified on the skin surface. The specimen is trisected and submitted entirely in cassette A1. ??Grossed by AT. B: ?? Received in formalin labeled with the patient's name, medical record number, and left [id number] is a 0.9 x 0.9 x 0.1 cm pale rivera skin shave biopsy. ??There is a 0.4 x 0.3 cm pale rivera-brown lesion eccentrically located on the skin surface. ??The specimen is trisected and submitted entirely in cassette B1. ??Grossed by AT. Interpretation FINAL DIAGNOSIS 10/25/2019 [facility] A. ??Left upper paraspinal back, Skin shave biopsy: 3:27 PM MEDICATION TECH Superficial and nodular basal cell carcinoma, involving biopsy border B. ??Left buttock, lateral--hip, Skin shave biopsy: Lentiginous compound nevus with moderate atypia, peripheral borders appear free of involvement COMMENT Absence of nevus at borders in sections from a shave or punch specimen does not necessarily indicate that the lesion has been completely removed. ??Clinical and pathological correlation is recommended to determine adequacy of removal. Specimen (Source) Anatomical Collection Method Collection Time Re ceived Time Location / / Volume Laterality Skin (Left upper 10/21/2019 11:20 paraspinal back) AM MEDICATION TECH Skin (Left 10/21/2019 11:21 buttock) AM MEDICATION TECH Narrative This result has an attachment that is no t available. Petey Saravia M.D. LAB PATH DERM ORDERABLES Performing Organization Address City/State/ZIP Code Phon e Number [facility] - [address] [place], [place] [address] [place] [address] Laboratories-[facility] [address] documented in this encounter Visit Diagnoses Diagnosis Keratosis Actinic - Primary Nevi Multiple Personal History Of Other Malignant Neop lasm Of Skin Tumor Skin Uncertain Behavior Lesion Skin Back Keratosis Seborrheic Lentigo Dermatoheliosis Keratosis Lichenoid documented in this encounter
--- OUTSIDE RECORDS SUMMARY | 2022-09-12 09:08 | XMS_ITS | Encounter Summary ---
:1955 Author Organization [facility] Address [address] [place] [address] Care Team Providers Name Role Phone Unavailable Primary Care Provider Unavailable Encounter Details Date Type Department Care Team Description 07/19/2018 Orders Only [facility] - Yaron España [address] [facility] [place] [phone] Social History Tobacco Use Types Packs/Day Years [...] or relatives? How often do you attend scientologist or Never 2020 tenriism services? Do you belong to any clubs or Yes 12/12/2020 organizations such as scientologist groups, unions, fraternal or athletic groups, or [...]
--- OUTSIDE RECORDS SUMMARY | 2022-09-12 09:08 | XMS_ITS | Encounter Summary ---
:1955 Author Organization [facility] Address [address] [place] [address] Care Team Providers Name Role Phone Unavailable Primary Care Provider Unavailable Reason for Visit Reason Comments [facility] Nurse Line Encounter Details Date Type Department Care Team Description 01/22/2020 Clinical Communication Division of PEARL Vega Nurse Susi [facility] Yfn Dumont R.N. [facility] [place] [address] [facility] in [place], [place] [address] [address] [facility] [phone] [place], [place] (Work) [phone] Social History Tobacco Use Types Packs/Day Years [...] or relatives? How often do you attend oriental orthodox or Never 2020 scientologist services? Do you belong to any clubs or Yes 12/12/2020 organizations such as oriental orthodox groups, unions, fraternal or athletic groups, or [...] this encounter Miscellaneous Notes Telephone Encounter - Yfn Vega R.N. - 01/22/2020 10:38 AM CDT Nurse Phone Triage Assessment CHIEF COMPLAINT / REASON FOR CALL Questions regarding novel coronavirus (COVID-19) HISTORY OF PRESENT ILLNESS Aruna Velazquez calls to report beginning 01/08/2020 has had a non-productive cough, feels congestion in her chest when taking a deep breath but denies sob, no fever (used thermometer). Does patient have fever, cough or respiratory symptoms? Yes Dry cough Have you had close contact with a person with a laboratory confirmed case of COVID-19? Unsure Has the patient had air travel/cruise or domestic travel to major metropolitan areas in the last 14 days? Yes Patient and traveled to [place] and [place] from 12/28/2019 - 01/16/2020 returning to [place]. They report having self-quarantined at home since their return. Does patient fall into any of the high risk categories as identified by [facility] Infectious Disease? Yes, advanced age. SYMPTOM ASSESSMENT Do you have lightheadedness? No Do you feel like you may collapse when you sit or stand up? No Respiratory effort/distress: No SOB Cough: Non-productive Date of onset of cough: 01/08/2020 Fever: No Exposure to influenza (if high risk illness/disease consider Influenza Treatment Nurse Protocol): Unsure or (up to 2 weeks): No PLAN Endpoint recommendation: Self-Isolation, quarantine at home Care Points provided: Wash hands often with soap and water for at least 20 seconds, especially afterblowing your nose, coughing, sneezing, or having been in a public place., If soap and water aren't available use a hand adzing and boring machine operator that contains at least 60% alcohol., Avoid touching your face, nose andeyes., Stay home except to get medical care., Avoid public areas (do not go to work, school, etc.).,Avoid public transportation., Stay in a specific room away from other people and pets., Use a separate bathroom if possible., Wear a facemask if you are sick before you enter the medical office. Notifyprimary care provider if any new or worsening symptoms. Education: patient/caller Patient/caregiver able to teach back Caller agreeable to plan of care: Yes The following references were used: [facility] novel coronavirus (COVID- 19) resources, CDC website https://www.cdc.gov/coronavirus/2019- ncov/summary.html, [place] Department of Health ([facility]) Guidelines for self-isolation documented in this encounter Plan of Treatment Not on filedocumented as of this encounter Visit Diagnoses Not on filedocumented in this encounter
--- OUTSIDE RECORDS SUMMARY | 2022-09-12 09:08 | XMS_ITS | Encounter Summary ---
:1955 Author Organization [facility] Address [address] [place] [address] Care Team Providers Name Role Phone Unavailable Primary Care Provider Unavailable Encounter Details Date Type Department Care Team Description 10/22/2019 Orders Only Department of [place], Keratosis Acti evelin (Primary Dx); Dermatology in [place] [address] [place] [address] Social History Tobacco Use Types Packs/Day Years [...] or relatives? How often do you attend sabianism or Never 2020 sikhism services? Do you belong to any clubs or Yes 12/12/2020 organizations such as sabianism groups, unions, fraternal or athletic groups, or [...] as of this encounter Visit Diagnoses Diagnosis Keratosis Actinic - Primary Dermatoheliosis documented in this encounter
--- OUTSIDE RECORDS SUMMARY | 2022-09-12 09:08 | XMS_ITS | Encounter Summary ---
:1955 Author Organization [facility] Address [address] [place] [address] Care Team Providers Name Role Phone Unavailable Primary Care Provider Unavailable Reason for Referral Outpatient (Routine) - Closed Specialty Diagnoses / Procedures Referred By Contact Refer red To Contact Dermatology Diagnoses Vinayakgo Rose Marie Morton M.D. [facility] [id number] [place] [phone] Referral ID Status Reason Start Date Expiration Date Visits Requ ested Visits Authorized [id number] Closed 06/15/2018 06/15/2019 1 1 Reason for Visit Appointment Request (Routine) - Closed Specialty Diagnoses / Procedures Referred By Contact Refer red To Contact Dermatology Referral ID Status Reason Start Date Expiration Date Visits Requ ested Visits Authorized [id number] Closed 05/17/2018 05/17/2019 1 Encounter Details Date Type Department Care Team Description 06/15/2018 Comprehensive Visit Department of [place], Dermato heliosis (Primary Dx); [place] Josse Arrieta Cancer Skin Bas al Cell Personal History; [place] Tumor Skin Uncertain Behavio r [address] [place] [id number] Social History Tobacco Use Types Packs/Day Years [...] or relatives? How often do you attend mu-ism or Never 2020 amish services? Do you belong to any clubs or Yes 12/12/2020 organizations such as mu-ism groups, unions, fraternal or athletic groups, or [...] file documented as of this encounter Consult Birgit Rae M.D. - 06/15/2018 3:00 PM CDT Referral No ref. provider found Chief Complaint Supervised by: Dr. Morton. Supervising nursing consultant, Dr. Morton, was immediately available, but consultation was not required. Correspondence to Dr. Ross. Skin examination HISTORY OF THE PRESENT ILLNESS Aruna Velazquez is a pleasant 63 y.o. female who is seen in consultation for skin examination. She haspersonal history of multiple nonmelanoma skin cancers. The patient is very concerned about a lesion on her right forearm. She has had for the past couple of months and she feels that it is different than any other other lesions. In addition she has three rough lesions on her nose that she would like examined. PHYSICAL EXAM General: Awake, alert, in no acute distress, and with appropriate affect. Skin: Full skin examination of the head, neck, chest, abdomen, back, upper extremities, and lower extremities was performed per patient's request. On the right posterior forearm there is a 6 mm flat topped raised jacques papule. On the back there is a 2-3 mm brown macule with globules. Multiple solar lentigines on the face, shoulders, and back. On the nose are three rough red macules. IMPRESSION AND PLAN #1 Dermatoheliosis #2 History of nonmelanoma skin cancer Complete skin examination was performed today with no evidence of recurrence of previous skin cancers. I recommended continued sun protection and self- surveillance for skin cancer. If they note any newworrisome or changing lesions, they should return to clinic. #3 Rhytides #4 Solar lentigines #5 Actinic keratoses Patient has had laser treatment done past and she is interested in additional treatment. I have placed a cosmetic consultation to be seen on Gonda 16. Today we decided to defer treatment of the three actinic keratoses on the nose as they might be treated with laser treatment. #5 Tumor of uncertain behavior, left upper back Lesion concerning for atypical nevus. CONSENT Discussed the risks, benefits, alternatives, and [...] biopsy was obtained from the left upper back. Biopsy submitted to Dermatopathology for H&E. Special stains will be performed as indicated. The bleeding was well controlled with application of aluminum chloride. Dressing was applied, and wound care instructions were explained. Biopsy results and any further recommendations will be communicated to the patient by letter. Patient given pamphlet [id number]. #6 Tumor of uncertain behavior, right posterior forearm SK vs NMSC. CONSENT Discussed the risks, benefits, alternatives, and [...] a shave biopsy was obtained from the right posterior forearm. Biopsy submitted to Dermatopathology for H&E. Special stains will be performed as indicated. The bl eeding was well controlled with application of aluminum chloride. Dressing was applied, and wound care instructions were explained. Biopsy results and any further recommendations will be communicated to the patient by letter. Patient given pamphlet [id number]. PATIENT EDUCATION Ready to learn. No apparent learning barriers were identified. Learning preferences include listening. Explained diagnosis and treatment plan; patient/guardian of patient expressed understanding of thecontent. documented in this encounter Plan of Treatment Scheduled Referrals Name Type Priority Associated Order Schedule Diagnoses Dermatology - Outpatient Referral Routine Lentigo Expecte d: Cosmetic consult 06/15/2018 (clinic) (Approximate), Expires: 06/15/2021 documented as of this encounter Procedures Procedure Name Priority Date/Time Associated Diagnosis Comme nts DERMATOPATHOLOGY Routine 06/15/2018 2:47 PM Resul ts for this CDT procedure are i n the results section. documented in this encounter Results Dermatopathology (06/15/2018 2:47 PM CDT) Component Value Ref Test Analysis Performed At [facility] gist Range Method Time Signature Gross Description A: ??Received in formalin labeled with the patien t's name, 06/19/2018 [facility] medical record number, and right posterior forearm is a 3:36 PM LABORATORIES - 0.8 x 0.8 x 0.1 cm pale rivera skin shave biopsy. ??There is a CDT [facility] 0.6 x 0.4 cm rivera pigmented lesion with ill-defined borders [facility] eccentrically located on the skin surface. ??The specimen is bisected longitudinally and submitted entirely cassette A1. Grossed by EMILEE. B: ??Received in formalin labeled with the patient's name, medical record number, and left upper paraspinal back is a 0.7 x 0.5 x 0.1 cm pale rivera skin shave biopsy. ??There is a 0.3 x 0.2 cm brown pigmented lesion with irregular borders eccentrically located on the skin surface. ??The specimen is bisected and submitted entirely cassette B1. Grossed by EMILEE. Participated in [employer] 06/19/2018 [facility] IGNACIO Gardner D.OBeulah-Pathology 3:36 PM LABORATORIES - Interpretation Fellow [facility] Report Romeo Robles 06/19/2018 [facility] electronically Josse Hernandez 3:36 PM LABORATORIES - signed by [facility] 06/19/2018 [facility] 3:36 PM LABORATORIES - [facility] Interpretation FINAL DIAGNOSIS 06/19/2018 [facility] NELSON A. ??Right posterior forearm, Skin shave biopsy: ??Licheno id 3:36 PM LABORATORIES - keratosis [facility] B. ??Left upper paraspinal back, Skin shave biopsy: [place] Compound nevus with moderate atypia, closely approximating a biopsy edge Specimen (Source) Anatomical Collection Method Collection Time Re ceived Time Location / / Volume Laterality Skin (Right 06/15/2018 2:47 posterior forearm) PM CDT Skin (Left upper 06/15/2018 2:47 paraspinal back) PM T Narrative This result has an attachment that is no t available. Birgit Ross M.D. LAB PATH DERM ORDERABLES Performing Organization Address City/State/ZIP Code Phon e Number [facility] LABORATORIES - [address] [place], [place] [address] [facility] documented in this encounter Visit Diagnoses Diagnosis Dermatoheliosis - Primary Lentigo Cancer Skin Basal Cell Personal History Tumor Skin Uncertain Behavior documented in this encounter
--- OUTSIDE RECORDS SUMMARY | 2022-09-12 09:08 | XMS_ITS | Encounter Summary ---
:1955 Author Organization [facility] Address [address] [place] [id number] Care Team Providers Name Role Phone Unavailable Primary Care Provider Unavailable Encounter Details Date Type Department Care Team Description 06/15/2018 Ancillary Procedure Department of Dermatology Social History [...] or relatives? How often do you attend catholic or Never 2020 evangelical services? Do you belong to any clubs or Yes 12/12/2020 organizations such as catholic groups, unions, fraternal or athletic groups, [...] Date/Time Associated Comments Diagnosis DERMATOLOGY IMAGE Routine 06/15/2018 2:55 PM Resu lts for this EXAM CDT procedure are i n the results section. documented in this encounter Results DERMATOLOGY IMAGE EXAM (06/15/2018 2:55 PM CDT) Specimen (Source) Anatomical Collection Method Collection Time Re ceived Time Location / / Volume Laterality 06/15/2018 2:53 PM CDT Narrative [facility] - 06/15/2018 2:55 PM CDT This order has been created and auto-finalized to support the import of images acquired without order. The clini sharron documentation to support these images can be found on the encounter paul t produced images. Provider Not In System IMG NON RAD IMAGING PROCEDUR ES Performing Organization Address City/State/ZIP Code Phon e Number [facility] [place] documented in this encounter Visit Diagnoses Not on filedocumented in this encounter
--- OUTSIDE RECORDS SUMMARY | 2022-09-12 09:08 | XMS_ITS | Encounter Summary ---
:1955 Author Organization [facility] Address [address] [place] [address] Care Team Providers Name Role Phone Unavailable Primary Care Provider Unavailable Reason for Visit Reason Onset Date Comments RX PRIOR AUTHORIZATION 07/19/2018 DENIAL OF TRETINO IN 0.05% CREAM Encounter Details Date Type Department Care Team Description 07/19/2018 Clinical Communication [facility] - Sebastian Gonzalez RX PRIOR Kiera Holman M.D., AUTHORIZATION (DENIAL [address], [address] CREAM) [facility] [id number] [place] [phone] Social History Tobacco Use Types Packs/Day Years [...] or relatives? How often do you attend uatsdin or Never 2020 amish services? Do you belong to any clubs or Yes 12/12/2020 organizations such as uatsdin groups, unions, fraternal or athletic groups, or [...] this encounter Miscellaneous Notes Telephone Encounter - Sharlene Hernandez M.D. - 07/23/2018 8:25 AM CDT The tretinoin prescription was for cosmetic reasons. This is usually considered self pay. Telephone Encounter - Gopal Leong - 07/19/2018 1:41 PM CDT Images from the original note were not included. The patient???s health insurer has denied prior authorization for DENIAL OF TRETINOIN 0.05% CREAM. SEE COMMUNICATIONS. Your options: 1. Appeal the decision by reaching out to the patient???s insurer directly. OR FAX [phone]. 2. Consider changing the patient???s medication therapy. 3. If not appealing or prescribing a different Rx, the prescription has already been released to thepharmacy so the patient has the option to pay full campos for the item if desired. Thank you documented in this encounter Plan of Treatment Not on filedocumented as of this encounter Visit Diagnoses Not on filedocumented in this encounter
[2022-09-12 10:48] LABS: Albumin* 4.4 g/dL (3.3-5.0); Chloride* 103 mmol/L (96-114); Sodium* 138 mmol/L (135-149)
[2022-09-12 10:49] LABS: Potassium* 4.6 mmol/L (3.6-5.1)
[2022-09-12 10:51] LABS: Alkaline Phosphatase* 75 U/L (40-150); Aspartate Amino Transferase* 27 U/L (12-35); Bilirubin Total* 1.2 mg/dL (0.1-1.5); Blood Urea Nitrogen* 23 mg/dL (7-30); Carbon Dioxide* 26 mmol/L (20-32); Cholesterol* 185 mg/dL (90-199); Creatinine* 0.7 mg/dL (0.5-1.5); Estimated Glomerular Filt Rate 94 ml/min; Glucose* 91 mg/dL (60-115); Total Protein* 7.1 g/dL (6.0-8.3); Triglycerides* 74 mg/dL (40-149)
[2022-09-12 10:52] LABS: Alanine Aminotransferase* 24 U/L (4-35); Calcium* 9.4 mg/dL (8.4-10.6); HDL Cholesterol* 44 mg/dL (>=50); LDL Cholesterol Calculated 126 mg/dL (<100)
[2022-09-14 02:56] LABS: Vitamin D, 1,25-Dihydroxy 62.3 pg/mL (19.9-79.3)
== END 2022-09-12 13:25 | disposition home or self-care (01) ==
PROVIDERS: PCP Family Medicine; Visit Provider Family Medicine
DX: Z00.00 Encounter for general adult medical examination without abnormal findings (principal); E78.5 Hyperlipidemia, unspecified; E55.9 Vitamin D deficiency, unspecified; M85.80 Other specified disorders of bone density and structure, unspecified site
CPT/HCPCS: 80053; 80061; 82652

== ENCOUNTER 2023-01-25 10:01 | Outpatient (CLI) | payer MEDICARE, BC, SELFPAY ==
--- NOTE | 2023-01-25 10:15 | CRLHL7_ITS ---
For Patients: As a result of the Century Cures Act, medical imaging exams and procedure reports are released immediately into your electronic medical record. You may view this report before your referring provider. If you have questions, please contact your health care provider. BILATERAL SCREENING MAMMOGRAM WITH COMPUTER-AIDED DETECTION AND TOMOSYNTHESIS TECHNIQUE: CC and MLO views were obtained. These mammographic images have been obtained using full-field digital technique. These mammographic images were interpreted with the benefit of computer-aided detection. Breast Tomosynthesis was used in this interpretation. COMPARISON FILM: 12/10/20; 12/03/19; 10/21/18. FINDINGS: The breasts are heterogeneously dense, which may obscure small masses IMPRESSION: There is no radiographic evidence for malignancy. ASSESSMENT: BI-RADS Category 1: Negative RECOMMENDATION: Routine screening mammogram in 1 year. A lay language report of this examination will be provided to the patient. Baldomero Bradley M.D. Diagnostic Radiologist [email or web address] Transcribed: 2:07 p.m. DW/Dictated by: Baldomero Bradley MD @ 01/25/2023 12:16:00 PM (Electronically Signed)
== END 2023-01-25 10:02 | disposition home or self-care (01) ==
PROVIDERS: PCP Family Medicine; Visit Provider Family Medicine
DX: Z12.31 Encounter for screening mammogram for malignant neoplasm of breast (principal); R92.2 Inconclusive mammogram
CPT/HCPCS: 77063; 77067

== ENCOUNTER 2023-05-25 13:58 | Outpatient (CLI) | payer MEDICARE, BC, SELFPAY | END 2023-05-25 13:59 | disposition home or self-care (01) | PROVIDERS: PCP Family Medicine; Visit Provider Family Medicine | DX: M25.50 Pain in unspecified joint (principal); M54.2 Cervicalgia; E78.5 Hyperlipidemia, unspecified; W57.XXXA Bitten or stung by nonvenomous insect and other nonvenomous arthropods, initial encounter; Z11.9 Encounter for screening for infectious and parasitic diseases, unspecified | CPT/HCPCS: 86618 ==

== ENCOUNTER 2023-10-13 08:45 | Outpatient (CLI) | payer MEDICARE, BC, SELFPAY | END 2023-10-13 08:46 | disposition home or self-care (01) | LOC: NFLDREF 10-14 10:05 | PROVIDERS: PCP Family Medicine; Referring Provider Family Medicine; Visit Provider Family Medicine | DX: E55.9 Vitamin D deficiency, unspecified (principal); E78.5 Hyperlipidemia, unspecified; M85.89 Other specified disorders of bone density and structure, multiple sites | CPT/HCPCS: 80061; 82306; 82607 ==

== ENCOUNTER 2023-11-27 06:30 | Outpatient (CLI) | payer MEDICARE, BC, SELFPAY ==
--- OUTSIDE RECORDS SUMMARY | 2023-11-27 06:32 | XMS_ITS | Clinical Summary ---
Author Name Unknown Organization [facility] Address [place], [place] [address] Care Team Providers Care Nut Sorter Name Role Phone Unavailable Primary Care Provider Unavailabl e Allergies Active Allergy Reactions Criticality Noted Date Comments Sulfa (Sulfonamide Antibiotics) Hives 05/2012 Reaction in 1997 Medications No known medications Active Problems Problem Noted Date Diagnosed Date Routine general medical exam ination at a health care facility 06/23/2011 Overview: Colonoscopy 06/2013 normal repeat in 10 years Immunizations Name Administration Dates Next Due HepA-HepB (Twinrix) 12/26/2006,07/13/2006,2005 Tdap 06/06/2006 Zoster (Zostavax-ZVL, live) 06/27/2013 Family History Medical History Relation Name Comments Cancer Father multiple myelom a Heart Disease Mother MVP Cancer-breast Paternal Grandmother Diagno sed in her 70's Other Sister MVP?? Relation Name Status Comments Father (Age 59) melanoma Mother (Age 84) MVP, CHF Paternal Grandmother Sister Social History Tobacco Use Types Packs/Day Years Used Date Smoking Tobacco: Never Smokeless Tobacco: Never Tobacco Cessation:Counseling Given: Yes Alcohol Use Standard Drinks/Week Comments Yes 0 (1 standard drink = 0.6 oz pur e alcohol) 1x/month Sex and Gender Information Value Date Recorded Sex Assigned at Not on file Gender Identity Not on file Sexual Orientation Not on file Obstetrics History Last Filed Vital Signs Vital Sign Reading Time Taken Comments Blood Pressure 113/75 09/17/2014 9:32 AM YARN SIZER Pulse 56 09/17/2014 9:32 AM YARN SIZER Temperature 36.4 ??C (97.6 ??F) 06/27/2013 11:51 AM C DT Respiratory Rate - - Oxygen Saturation 100% 06/25/2013 2:25 PM CDT Inhaled Oxygen Concentration - - Weight 70.8 kg (156 lb) 09/17/2014 9:32 AM YARN SIZER Height 164 cm (5' 4.57) 09/17/2014 9:32 AM YARN SIZER Body Mass Index 26.31 09/17/2014 9:32 AM YARN SIZER Plan of Treatment Health Maintenance Due Date Last Done Comments COVID-19 vaccine series (#1) 1955 Depression screening for age 12+ 1965 BMI (ht and wt on same day) for age 18+ 1971 Hepatitis C screening for ag e 18-79 1971 Zoster (shingles) series for age 50+ (2 of 3) 08/22/2013 06/27/2013 Tetanus booster 06/06/2016 06/06/2006 Mammogram for age 45-75 09/23/2016 09/23/20 15, 09/17/2014, 06/27/2013, Additional history exists DEXA/DXA scan for age 65+ 2018 Pneumococcal series for age 65+ (1 of 1 - PCV) 2018 Lipids for age 45-75 06/27/2018 06/27/2013, 06/26/2012, 05/12/2009 Colonoscopy through age 75 06/25/202306/25, 06/25/2013, 06/23/2011 (Completed outside of [facility]), Additional history exists Influenza for age 65+ 07/07/2023 Tdap Completed 06/06/2006
--- NOTE | 2023-11-27 07:42 | P.ANES_ITS ---
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
--- NOTE | 2023-11-27 08:34 | W.ANESCHARGE ---
Anesthesia Charges Start Date/Time Anesthesia Start Date: 11/27/23 Anesthesia Start Time: 07:20 Stop Date/Time Anesthesia Stop Date: 11/27/23 Anesthesia Stop Time: 07:40 Summary Extremes of Age - Over 70 or under 1: MDA
== END 2023-11-27 06:31 | disposition home or self-care (01) ==
LOC: OP CLINIC 06:30
PROVIDERS: PCP Family Medicine; Visit Provider Internal Medicine
DX: Z12.11 Encounter for screening for malignant neoplasm of colon (principal)
CPT/HCPCS: 00812; 45378; 99100; J2704

== ENCOUNTER 2024-01-29 09:04 | Outpatient (CLI) | payer MEDICARE, BC, SELFPAY ==
--- NOTE | 2024-01-29 09:15 | MM_ITS ---
Patient: ADY GUEVARA Facility:?[facility] Patient ID:?[id number] Site Patient ID:?[id number]. Site :?1955 Study:?XRay-Breast Bilateral 3D W/CAD-01/29/2024 9:25:56 AM Ordering Physician:?Usha Durpee Final Report: BILATERAL SCREENING MAMMOGRAM WITH COMPUTER-AIDED DETECTION AND TOMOSYNTHESIS TECHNIQUE: CC and MLO views were obtained. These mammographic images have been obtained using full-field digital technique. These mammographic images were interpreted with the benefit of computer-aided detection. Breast tomosynthesis was used in this interpretation. COMPARISON FILM: 01/25/23, 12/10/20, 12/03/19 FINDINGS: The breasts are heterogeneously dense, which may obscure small masses. IMPRESSION: There is no radiographic evidence for malignancy. ASSESSMENT: BI-RADS Category 1: Negative RECOMMENDATION: Routine screening mammogram in 1 year. A lay language report of this examination will be provided to the patient. CRISSY TENA M.D. Diagnostic Radiologist [email or web address] SUAD/anupama D& Transcribed: 6:[address]/Dictated by: Crissy Tena MD @ 02/08/2024 12:50:00 PM Signed by:Caren Tena MD @02/08/2024 8:24:21 PM (Electronic Signature)
== END 2024-01-29 09:05 | disposition home or self-care (01) ==
LOC: MAMMO 09:05
PROVIDERS: PCP Family Medicine; Visit Provider Family Medicine
DX: Z12.31 Encounter for screening mammogram for malignant neoplasm of breast (principal); R92.2 Inconclusive mammogram
CPT/HCPCS: 77063; 77067

== ENCOUNTER 2025-01-27 08:03 | Outpatient (CLI) | payer MEDICARE, BC, SELFPAY | END 2025-01-27 08:04 | disposition home or self-care (01) | LOC: NFLDREF 01-28 05:51 | PROVIDERS: PCP Family Medicine; Referring Provider Family Medicine; Visit Provider Family Medicine | DX: E78.5 Hyperlipidemia, unspecified (principal); E55.9 Vitamin D deficiency, unspecified; Z13.21 Encounter for screening for nutritional disorder; Z13.1 Encounter for screening for diabetes mellitus | CPT/HCPCS: 80061; 82306; 82607; 82947 ==

== ENCOUNTER 2025-02-03 12:50 | Outpatient (CLI) | payer MEDICARE, BC, SELFPAY ==
--- NOTE | 2025-02-03 13:00 | CRLHL7_ITS ---
For Patients: As a result of the Century Cures Act, medical imaging exams and procedure reports are released immediately into your electronic medical record. You may view this report before your referring provider. If you have questions, please contact your health care provider. BILATERAL SCREENING MAMMOGRAM WITH COMPUTER-AIDED DETECTION AND TOMOSYNTHESIS TECHNIQUE: CC and MLO views were obtained. These mammographic images have been obtained using full-field digital technique. These mammographic images were interpreted with the benefit of computer-aided detection. Breast Tomosynthesis was used in this interpretation. COMPARISON FILM: 01/29/24, 01/25/23, 12/10/20. FINDINGS: The breasts are heterogeneously dense, which may obscure small masses. IMPRESSION: There is no radiographic evidence for malignancy. ASSESSMENT: BI-RADS Category 2: Benign RECOMMENDATION: Routine screening mammogram in 1 year. A lay language report of this examination will be provided to the patient. Baldomero Bradley M.D. Diagnostic Radiologist [email or web address] SP/Dictated by: Baldomero Bradley MD @ 02/05/2025 8:48:00 AM (Electronically Signed)
== END 2025-02-03 12:51 | disposition home or self-care (01) ==
LOC: MAMMO 12:51
PROVIDERS: PCP Family Medicine; Visit Provider Family Medicine
DX: Z12.31 Encounter for screening mammogram for malignant neoplasm of breast (principal); R92.333 Mammographic heterogeneous density, bilateral breasts
CPT/HCPCS: 77063; 77067

== ENCOUNTER 2025-02-12 14:08 | Outpatient (CLI) | payer MEDICARE, BC, SELFPAY ==
--- NOTE | 2025-02-12 14:30 | CRLHL7_ITS ---
For Patients: As a result of the Century Cures Act, medical imaging exams and procedure reports are released immediately into your electronic medical record. You may view this report before your referring provider. If you have questions, please contact your health care provider. XR DXA Bone Mineral Density (BMD) Reason for exam: Follow-up osteopenia. Current height (in): 64. Weight (lb): 160. Menopause age: Not provided. Ethnicity: White. 1. Have you had a previous hip or vertebral fracture? No. 2. Have you had any fractures during your adult life which did not result from significant trauma (e.g., auto accident)? No. 3. Did either of your parents have a hip fracture? No. 4. Do you smoke? No. 5. Have you ever taken Glucocorticoids? No. 6. Do you have rheumatoid arthritis? No. 7. Do you have secondary osteoporosis? No. 8. Do you drink 3 or more alcoholic drinks per day? No. 9. Are you being treated for osteoporosis? No. 10. Have you ever taken any of the following medications: Actonel, Evista, Fosamax, Miacalcin, Reclast, Boniva, Forteo, HRT (i.e. estrogen/hormone therapy), Protelos, Prolia, Vitamin D, Calcium, other ??? please specify. ANSWER: Yes, vitamin D, B12, calcium. 11. Do you have any of the following medical conditions: Anorexia or bulimia, asthma or emphysema, end stage renal disease, hyperparathyroidism, any seizure disorders, cancer, inflammatory bowel diseases, hysterectomy, other ??? please specify. ANSWER: No. 12. What was your maximum height (inches)? 65. 13. Do you perform weight bearing exercise regularly? Yes. 14. Do you regularly consume dairy products? Yes. 15. Do you drink caffeinated beverages? Yes. 16. At what age did your period start? 12. 17. Are you premenopausal? No. 18. How many full term pregnancies have you had? 2. 19. Have you ever missed your period for more than 6 months in a row (not including or menopause)? No. TECHNIQUE: Bone mineral density study was performed using the [employer]. FINDINGS: The results of the study expressed as bone mineral density (BMD) are as follows: Lumbar spine L1 and L3: BMD: 1.031 g/cm2. T-score: 0.2. Z-score: 2.3. Neck Left: BMD: 0.676 g/cm2. T-score: -1.6. Z-score: 0.3. Right: BMD: 0.705 g/cm2. T-score: -1.3. Z-score: 0.6. Total Left: BMD: 0.765 g/cm2. T-score: -1.4. Z-score: 0.2. Right: BMD: 0.796 g/cm2. T-score: -1.2. Z-score: 0.4. IMPRESSION: Osteopenia. *Comparison exams done prior to 04/2020 were performed on different unit, [employer]. COMPARISON: Compared with scan of 09/09/2021, the bone mineral density has increased by 8.2 percent at the spine and decreased by 1.7 percent at the hip. Compared with scan of 10/11/2018, the bone mineral density has increased by 1.6 percent at the spine and increased by 1.1 percent at the hip. FRAX 10-year Fracture Risk Major Osteoporotic Fracture: 10 percent Hip Fracture: 1.7 percent Reported Risk Factors: [place] () Neck BMD=0.676, BMI=27.5 Baldomero Bradley M.D. Diagnostic Radiologist [email or web address] SUAD/dasha / bM/Dictated by: Baldomero Bradley MD @ 02/12/2025 3:27:00 PM (Electronically Signed)
== END 2025-02-12 14:09 | disposition home or self-care (01) ==
LOC: RAD 14:09
PROVIDERS: PCP Family Medicine; Visit Provider Family Medicine
DX: M85.89 Other specified disorders of bone density and structure, multiple sites (principal)
CPT/HCPCS: 77080